=== PATIENT | male | born 1990 | race Caucasian/White ===

== ENCOUNTER 2017-11-23 10:54 | Inpatient (IN) | payer BC, OTHER ==
[~2017-11-23] VITALS: Ht 182.9 cm; Wt 100.2 kg
--- NOTE | 2017-11-23 19:40 | NUR ---
INTAKE ASSESSMENT Intake assessment done by Leila GUTIERREZ and Dimple RN. BP: 137/87, HR:71, RR:16, SpO2:99%, T:98 Pt is in stable condition and able to be admitted on the unit. Unit protocols regrading medications vital signs every four hours were explained. Pt verbalized understanding. Will continue admission upon arrival on the unit.
[2017-11-23 20:26] LABS: *AMPHETAMINE, URINE NEGATIVE (NEGATIVE); *BARBITURATE, URINE NEGATIVE (NEGATIVE); *CANNABINOID, URINE NEGATIVE (NEGATIVE); *COCCAINE, URINE NEGATIVE (NEGATIVE); *OPIATE, URINE NEGATIVE (NEGATIVE); *PHENCYCLIDINE SCREEN,URINE NEGATIVE (NEGATIVE)
--- NOTE | 2017-11-23 21:45 | NUR ---
Admission Admitting 27 year old male to [facility] for medically supervised withdrawal from ETOH (Beer) and Opiates (Heroin). Substance abuse history also includes Cocaine, Marijuana, Methamphetamine, and acid. Pt has medical history of untreated HTN and a frontal brain injury of unknown etiology and did not require treatment Pt was escorted to unit by male INSIDE SALES ACCOUNT REPRESENTATIVE at 1959. He is awake, alert, and oriented. Ambulates independently. Pt cooperative with body and skin check. Skin clean, dry, and intact. Pt appears anxious, flat affect, and withdrawn. Pt denies intoxication and/or withdrawal symptoms at this time. Pt reports the following withdrawal symptoms,"Get anxious, depressed, angry, and have thoughts of suicide when I dont have drugs." Pt is cooperative and forthcoming with substance abuse history. Patient reports his substance abuse history as: 1. ETOH (beer): first use at age 14. Last consumed 2 12 oz beers on 11/22/17. Prior month he consumed approximately 30 beers for the month. Prior 4 years his consumption was 18 12 oz beers daily. 2. Opiates (Heroin): first use was age 19. Last use was I month ago unknown amount.. He would sporadically use approximately 1 gram over the period of a month. His method was always nasal insufflations. 3. Cocaine: first use was age 18. Last consumed 11/15/17 unknown amount. He would use 1 gram periodically over the period of one week for the past 5-6 years. Method was nasal insufflations. 4. Marijuana: first use at age 11. Last consumed 11/02/17 unknown amount. He would use 125mg over a period of a week for 14 years. Method was oral inhalation. 5. Methamphetamine: first use at age 25. Last consumed 11/20/17. He would use 1-1.5 gram daily for the past 7-8 months. Method nasal insufflations, oral inhalation, and PO ingestion. Pt states he used Acid one time 4 months ago. Pt states his substance use has been sporadic. He would use different drugs and quantities on a daily basis. As listed above the quantities were over a period of a day, week, and even a month. Pt was admitted to [facility] in 2014. He left AMA after 15 days and stayed sober for 2 additional days. This is noted to be his longest period of sobriety since age 11. Pt denies history of seizure, delirium, or cardiac complications related to withdrawal. When questioned about SI/SA pt denies at this time. Admits to thoughts of ending things when he runs out of drugs. Denies psychiatric history or 5150. Pt has had numerous consequences related to his substance abuse. He states he has had intentions to not use and would get triggered by multiple sources. I would go to the gas station for one thing and come out with beer, or I would see somebody I used with and then thats all I would think about. And sometimes I would taste the drug and then have to have it. Pt is here now on his own volition. He is motivated to be sober. I had a breakdown and I want to be here. He currently resides with his mother and father and considers them to be his support. His boss is aware of his situation and is allowing the time to seek help. He also has a daughter that he would like to be present in her life. He is currently trying to reconcile the relationship with his daughters mother. He states he has an opportunity for a job in [place] which he believes that after treatment will give him a clean start. Pt states that paternal grandparents are both alcoholics. Vital signs were rendered BP 137/87, HR 71, RR 16, T 98.6, and 99% on room air. Denies complaints of pain, nausea, or any withdrawal symptoms at his time. Lungs clear, bowel sounds active x 4 quadrants. Pt on regular diet, NKA, and a full code. Voiding and last BM 11/23/17 am. Ht 60 and 221 lbs. Pt is a moderate smoker with increased use with drugs and ETOH. Pt educated about plan of care, including detox, group therapy, individual therapy, and discharge. Given literature in regards to smoking cessation, disease processes, and medications that may be used during treatment. Verbalizes understanding. Admission CIWA 8 and COWS 3. notified and orders received. Labs ordered and rendered. Bed low and side rail up x 2. Pt oriented to room, unit, and equipment. Questions answered. Will continue to monitor. Addendum: 11/24/17 at 0719 by SELENE POP LVN Correction: patient is admitted for medically supervised ETOH withdrawal, not opiate withdrawal. Patient's last use of heroin was one month ago, per patient.
[2017-11-23] MEDS ORDERED: BUPRENORPHINE HCL 2 MG TAB.SUBL SL PRN (22:30)
[2017-11-23] MEDS ORDERED: METHOCARBAMOL 750 MG TABLET PO PRN (22:30)
[2017-11-23] MEDS ORDERED: LORAZEPAM 2 MG/1 ML VIAL IM PRN (22:30)
[2017-11-23] MEDS ORDERED: ACETAMINOPHEN 325 MG TABLET PO PRN (22:30)
[2017-11-23] MEDS ORDERED: diphenhydrAMINE 50 MG CAPSULE PO PRN (22:30)
[2017-11-23] MEDS ORDERED: CLONIDINE HCL 0.1 MG TABLET PO PRN (22:30)
[2017-11-23] MEDS ORDERED: MIRALAX 17 GM POWD.PACK PO PRN (22:30)
[2017-11-23] MEDS ORDERED: MAG HYDROX/AL HYDROX/SIMETH 30 ML LIQUID UDC PO PRN (22:30)
[2017-11-23] MEDS ORDERED: THIAMINE HCL 200 MG/2 ML VIAL IM ONE (22:30)
[2017-11-23] MEDS ORDERED: ONDANSETRON 4 MG/2 ML VIAL IM PRN (22:30)
[2017-11-23] MEDS ORDERED: LOPERAMIDE HCL 2 MG CAPSULE PO PRN ×2 (22:30)
[2017-11-23] MEDS ORDERED: HYDROXYZINE PAMOATE 25 MG CAPSULE PO PRN (22:30)
[2017-11-23] MEDS ORDERED: DICYCLOMINE HCL 20 MG TABLET PO PRN (22:30)
[2017-11-23] MEDS ORDERED: IBUPROFEN 400 MG TABLET PO PRN (22:30)
[2017-11-23] MEDS ORDERED: ONDANSETRON ODT 4 MG TAB.RAPDIS SL PRN (22:30)
[2017-11-23] MEDS ORDERED: MAGNESIUM HYDROXIDE 30 ML LIQUID UDC PO PRN (22:30)
[2017-11-23] MEDS ORDERED: LORAZEPAM 1 MG TABLET PO PRN ×2 (22:30)
[2017-11-24] VITALS: BP 121/75
--- NOTE | 2017-11-24 | NUR ---
COWS & CIWA DEFERRED COWS and CIWA deferred at this time, patient is sleeping in bed with eyes closed, respirations even and unlabored; COWS/CIWA to be assessed while patient is awake. Safety measures in place, side rails up x2, bed locked in low position, call light within reach. Will continue to monitor.
[2017-11-24 01:23] LABS: BASOPHILS # (AUTO) 0.1 K/uL (0.0-8.0); BASOPHILS % (AUTO) 0.9 % (0.0-2.0); EOSINOPHILS # (AUTO) 0.2 K/uL (0.0-0.7); EOSINOPHILS % (AUTO) 2.7 % (0.0-7.0); HEMOGLOBIN 16.4 g/dL (12.5-16.3); LYMPHOCYTES # (AUTO) 3.4 K/uL (20.0-40.0); LYMPHOCYTES % (AUTO) 37.3 % (20.5-51.5); MEAN CORPUSCULAR HEMOGLOBIN 30.9 uug (23.8-33.4); MEAN CORPUSCULAR HGB CONC 34 g/dL (32.5-36.3); MEAN CORPUSCULAR VOLUME 90.7 fL (73.0-96.2); MONOCYTES # (AUTO) 0.8 K/uL (2.0-10.0); MONOCYTES % (AUTO) 8.6 % (0.0-11.0); NEUTROPHILS # (AUTO) 4.6 K/uL (1.8-8.9); NEUTROPHILS % (AUTO) 50.5 % (38.5-71.5); PLATELET COUNT (AUTO) 199 K/uL (152-348); RED BLOOD CELL COUNT(AUTO) 5.29 MIL/uL (4.06-5.63); WHITE BLOOD COUNT (AUTO) 9.2 K/uL (3.6-10.2)
[2017-11-24 01:26] LABS: ETHANOL < 3 MG/DL (0-0)
[2017-11-24 01:29] LABS: ALANINE AMINOTRANSFERASE 55 U/L (16-63); ALKALINE PHOSPHATASE 67 U/L (50-136); AMYLASE 85 U/L (25-115); ASPARTATE AMINOTRANSFERASE 28 U/L (15-37); BILIRUBIN,TOTAL 0.3 mg/dL (0.2-1.0); CARBON DIOXIDE 25 mmol/L (21-32); CHLORIDE 109 mmol/L (98-107); CREATININE 0.9 mg/dL (0.6-1.3); GLUCOSE 91 mg/dL (74-106); LIPASE 248 U/L (73-393); MAGNESIUM 1.8 mg/dL (1.8-2.4); POTASSIUM 4.2 mmol/L (3.5-5.1); TOTAL PROTEIN, SERUM 6.7 g/dL (6.4-8.2); UREA NITROGEN, BLOOD 13 mg/dL (7-18)
[2017-11-24 01:36] LABS: THYROID STIMULATING HORMONE 1.307 mIU/mL (0.358-3.740)
--- NOTE | 2017-11-24 04:00 | NUR ---
VITALS REFUSED, COWS & CIWA DEFERRED VITALS refused, COWS and CIWA deferred due to patient sleeping; to be assessed and scored while patient is awake. Respirations even and unlabored, 16/min. Safety measures in place, side rails up x2, bed locked in low position, call light within reach. Will continue to monitor.
--- NOTE | 2017-11-24 07:22 | NUR ---
End of Shift Will endorse 27 year old male admitted 11/23/17 to [facility] for medically supervised withdrawal from ETOH and Opiates. No PRN medications given. Last CIWA 8 and COWS 3 at 1999. PO intake 500ml, voided x 1, BM x 0, and slept 8 hours. Pt in bed resting with eyes closed. Respirations even and unlabored. Continue with fall and seizure precautions with no seizure history. Bed low and side rails up x 2.
--- NOTE | 2017-11-24 07:45 | NUR ---
START OF SHIFT Pt is a 27 yr old male AA&Ox4. Pt is a newly admit from 11/23/17 for ETOH withdrawal and is on PRN's for s/s of w/d. Received report from director of product management nurse. No PRN's were given during the night. Last CIWA score was 8 at 1999. Pt was able to sleep for 8 hrs. Pt is stating, "I feel good this morning". Pt is observed with flat affect. Skin is intact, warm and moist to touch. Pt was encouraged increase fluid intake for hydration. Safety precautions observed. Will continue to monitor.
[2017-11-24 08:00] VITALS: BP 125/84
[2017-11-24] MEDS ORDERED: TUBERCULIN,PURIF.PROT.DERIV. 5 TU/0.1 ML TEST ID ONE (09:00)
--- NOTE | 2017-11-24 09:00 | NUR ---
CIWA ASSESSMENT Pt is c/o anxiety and sweats. CIWA score was 6. Pt is noted with flat affect and hypoactive. Encouraged increase fluid intake. Will continue to monitor.
[2017-11-24] MEDS: FOLIC ACID 1 MG TABLET PO SCH (09:26)
[2017-11-24] MEDS: MULTIVITAMINS,THERAPEUTIC TABLET PO SCH (09:26)
[2017-11-24] MEDS: THIAMINE HCL 100 MG TABLET PO SCH (09:26)
[2017-11-24] MEDS ORDERED: 4 DAY TAPER OF LORAZEPAM -SERENITY PROTOCOL PO PRN (10:45)
[2017-11-24] MEDS: ESCITALOPRAM OXALATE 10 MG TABLET PO SCH (11:10)
[2017-11-24 12:00] VITALS: BP 121/69
--- NOTE | 2017-11-24 12:00 | NUR ---
CIWA ASSESSMENT Pt is observed in bed resting with respirations even and unlabored. Pt is observed with flat affect, avoidant in eye contact and flushed skin. Pt states, "I just feel anxious". CIWA score was 6. Pt is to start on 4 day Ativan taper for s/s of w/d at 1300. Will continue to f/u.
[2017-11-24] MEDS: LORAZEPAM 1 MG TABLET PO SCH ×2 (13:18→17:00)
[2017-11-24 16:00] VITALS: BP 118/69
--- NOTE | 2017-11-24 17:00 | NUR ---
CIWA ASSESSMENT DEFERRED Pt is in bed sleeping with respirations even and unlabored. RR is 16. CIWA assessment deferred at this time. Safety precautions observed. Will continue to monitor.
--- NOTE | 2017-11-24 17:50 | NUR ---
MEDICATION HELD Ativan 2mg PO as scheduled at 1700 was held due to pt is too sedated. RR is 16. Safety measures are observed. Dr. Amin was made aware with new order to change Ativan 2mg PO at 2100 to Ativan 1mg PO at 2100 for today 11/24/17. New order was noted and carried out. Will continue to monitor.
--- NOTE | 2017-11-24 19:10 | NUR ---
END OF SHIFT Pt is a 27 yr old male, AA&Ox4. Pt was admitted on 11/23/17 for ETOH withdrawal and started on 4 day Ativan taper as ordered. Pt has been observed with increase fatigue and has been in bed throughout the day. Ativan 2mg PO as scheduled at 1700 was held due to pt was too sedated. MD was made aware. Pt was observed with flat affect and avoidant in eye contact. No PRNs were given during the day. Last CIWA score was 6 at 1200. Pt remains in bed sleeping with respirations even and unlabored. Safety precautions observed. Endorsed to cook night nurse to continue with care.
--- NOTE | 2017-11-24 19:20 | NUR ---
START OF SHIFT Patient is a 27-year-old male admitted on 11/23/17 for ETOH withdrawal. Patient has started a 4-day Ativan taper today, tolerating well. Per endorsement, patients last CIWA was scored as a 6. Patient received no PRN medications today. Upon assessment, patient is observed sleeping in bed, eyes closed, respirations even and unlabored. Patient is oriented x4, states Im fine and rolls over to go back to sleep. Patient appears older than stated age with flat affect. Patient appears disheveled and unshaven. Patient is on fall and seizure precautions with no history of seizure. Safety measures in place, side rails up x2, bed locked in low position, call light within reach. Will continue to monitor.
[2017-11-24 20:00] VITALS: BP 119/80
--- NOTE | 2017-11-24 20:00 | NUR ---
CIWA DEFERRED CIWA deferred at this time due to patient sleeping; to be assessed while patient is awake. Respirations even and unlabored, 18/min. Patient has been asleep since change of shift. Safety measures in place, side rails up x2, bed locked in low position, call light within reach. Will continue to monitor.
[2017-11-24] MEDS ORDERED: LORAZEPAM 1 MG TABLET PO ONE (21:00)
--- NOTE | 2017-11-24 22:10 | NUR ---
CIWA 6 Patient is awake at this time, oriented x4 and coherent in speech. Patient is anxious and restless, asking, "Can I go down to smoke or is it too late?" Patient has a current CIWA of 6. SN to give scheduled 2100 Ativan at this time. Will continue to monitor.
[2017-11-25] VITALS: BP 112/76
--- NOTE | 2017-11-25 | NUR ---
CIWA DEFERRED CIWA deferred at this time due to patient sleeping, to be assessed and scored while patient is awake. Respirations even and unlabored. Safety measures in place, side rails up x2, bed locked in low position, call light within reach. Will continue to monitor.
[2017-11-25 04:00] VITALS: BP 137/76
--- NOTE | 2017-11-25 04:00 | NUR ---
CIWA DEFERRED CIWA deferred due to patient sleeping; to be assessed and scored while patient is awake. Respirations are even and unlabored. Safety measures in place, side rails up x2, bed locked in low position, call light within reach. Will continue to monitor.
--- NOTE | 2017-11-25 07:06 | NUR ---
END OF SHIFT Patient is a 27-year-old male admitted on 11/23/17 for ETOH withdrawal. Patient started a 4-day Ativan taper yesterday, tolerating well. Patients last CIWA was a 6. Patient received no PRN medications during the shift. Patient slept for 11 hours, total intake of 1,250mL, void x1, stool x0. Patient is on fall and seizure precautions with no history of seizure. Safety measures in place, side rails up x2, bed locked in low position, call light within reach. Will endorse to day shift.
--- NOTE | 2017-11-25 07:35 | NUR ---
START OF SHIFT Pt is a 27 yr old male AA&Ox4. Pt was admitted on 11/23/17 for ETOH withdrawal and is on 4 day Ativan taper as ordered. Received report from tin flopper nurse. No PRN's were given during the night. Last CIWA score was 6 at 2210. Pt was able to sleep for 11 hrs. Pt is in bed resting with respirations even and unlabored. During assessment, Pt denies any sweats, chills, nausea, visual or auditory hallucinations. Pt states,"I am not withdrawing". Clarified history use of Alcohol with pt. Pt states in the past month he was drinking less due to increase use of meth. Pt states, "I would start drinking and then when I used meth, I would just stop drinking and continue using meth". Pt states, "I probably drank 10 beers in a week for the past month". Pt is noted agitated with flat affect due to clarification questions. Pt states, "you guys keep asking me that!" Pt was educated on the importance of maintaining an accurate use history. Pt was able to verbalize understanding. Safety precautions observed. Will continue to monitor.
[2017-11-25] MEDS: LORAZEPAM 1 MG TABLET PO SCH ×2 (09:00→13:00)
[2017-11-25 09:06] VITALS: BP 132/81
[2017-11-25] MEDS: MULTIVITAMINS,THERAPEUTIC TABLET PO SCH (09:18)
[2017-11-25] MEDS: FOLIC ACID 1 MG TABLET PO SCH (09:18)
[2017-11-25] MEDS: THIAMINE HCL 100 MG TABLET PO SCH (09:18)
[2017-11-25] MEDS: ESCITALOPRAM OXALATE 10 MG TABLET PO SCH (09:18)
--- NOTE | 2017-11-25 09:18 | NUR ---
MEDICATION REFUSED Pt refused to take Ativan 1mg PO as scheduled at 0900. Pt states, "I don't need that". CIWA score was 4 for agitation and anxiety. Will continue to monitor.
[2017-11-25 12:00] VITALS: BP 129/79
[2017-11-25 13:06] LABS: HEPATITIS B SURFACE AG Negative (Negative)
--- NOTE | 2017-11-25 13:22 | NUR ---
MEDICATION HELD Ativan 1mg PO as scheduled at 1300 was held per .
--- NOTE | 2017-11-25 14:26 | NUR ---
Therapist prompted client to attend all group therapy sessions.
[2017-11-25 16:00] VITALS: BP 131/75
--- NOTE | 2017-11-25 19:17 | NUR ---
END OF SHIFT Pt is a 27 yr old male, AA&Ox4. Pt was admitted on 11/23/17 for ETOH withdrawal. Pt was on 4 day Ativan taper but was discontinued per MD. Pt has been observed with increase fatigue and remained in his room throughout the day. Pt is observed with flat affect and avoidant in eye contact. No PRNs were given during the day. Last CIWA score was 4 at 1600. Pt is to be discharged tomorrow to [facility]. Pt states he is ready to continue with care. Safety precautions observed. Call light is within reach. Endorsed to hotel night auditor nurse to continue with care.
--- NOTE | 2017-11-25 19:30 | NUR ---
START OF SHIFT Pt is a 27 y/o male admitted on 11/23/17 for ETOH withdrawal. Pt was on a 4 day Ativan taper but was discontinue per MD. Pt is set to be discharged tomorrow to [facility]. Last CIWA 4 and no PRNs administered during day shift. Upon assessment Pt presented with anxiety, agitation, flat affect, withdrawn, isolative, and poor eye contact. Medications due. Safety measures in place. Call light within reach. Will continue to monitor.
[2017-11-25 20:00] VITALS: BP 125/69
--- NOTE | 2017-11-25 20:00 | NUR ---
CIWA 3 Pt found in bed watching TV. Pt complains of mild anxiety and agitation. Safety measures in place. Call light within reach. Will continue to monitor.
[2017-11-26] VITALS: BP 134/69
--- NOTE | 2017-11-26 | NUR ---
CIWA 3 Pt found in bed with eyes closed. Pt complains of mild anxiety and agitation. Safety measures in place. Call light within reach. Will continue to monitor.
--- NOTE | 2017-11-26 04:00 | NUR ---
CIWA DEFERRED AND VITAL SIGNS REFUSED Patient is noted in bed with eyes closed. Breathing even and non labored. CIWA and vital signs not able to be completed per order. Safety measures in place. Call light within reach. Will continue to monitor.
--- NOTE | 2017-11-26 07:14 | NUR ---
END OF SHIFT Pt is a 27 y/o male admitted on 11/23/17 for ETOH withdrawal. Pt was on a 4 day Ativan taper but was discontinue per MD. Pt is set to be discharged today to [facility]. Pt presented with anxiety, agitation, flat affect, withdrawn, isolative, and poor eye contact. No PRN medication administered during deli department manager. Last CIWA 3. Pt slept 9 hours. Intake 1,250 ml, void x 3, stool x 1. Safety measures in place. Call light within reach. Pt's need have been met. Endorse to day shift nurse.
[2017-11-26 08:00] VITALS: BP 132/84
--- NOTE | 2017-11-26 08:00 | NUR ---
START OF SHIFT Pt is a 27 yr old male AA&Ox4. Pt was admitted on 11/23/17 for ETOH withdrawal and is on PRN's for s/s of w/d. Received report from assistant casino shift manager nurse. No PRN's were given during the night. Last CIWA score was 3 at 0000. Pt was able to sleep for 9 hrs. Pt is currently in bed resting with respirations even and unlabored. Pt is c/o anxiety but is able to cope with anxiety level. Pt is observed with flat affect and avoidant in eye contact. Pt is pending on discharged for today. Safety precautions observed. CIWA score this morning is 3. Will continue to monitor.
[2017-11-26] MEDS ORDERED: LORAZEPAM 1 MG TABLET PO SCH (09:00)
[2017-11-26] MEDS: MULTIVITAMINS,THERAPEUTIC TABLET PO SCH (09:03)
[2017-11-26] MEDS: FOLIC ACID 1 MG TABLET PO SCH (09:03)
[2017-11-26] MEDS: THIAMINE HCL 100 MG TABLET PO SCH (09:03)
[2017-11-26] MEDS: ESCITALOPRAM OXALATE 10 MG TABLET PO SCH (09:03)
[2017-11-26 12:00] VITALS: BP 125/72
--- NOTE | 2017-11-26 12:14 | NUR ---
CIWA Assessment: CIWA 3, patient is noted with complains of anxiety but states it is tolerable at this time. He was able to participate in group and activities. With pending discharge this afternoon. Oral fluids encouraged. Support provided.
--- NOTE | 2017-11-26 15:15 | NUR ---
Discharge Pt is in stable condition. Vitals WNL. Pt is A&Ox4, skin intact. Pt denies any SI/HI. All discharge paperwork completed, dated, and signed. Pt educated about discharge instructions, what to do after discharge when to contact MD as well as the s/s reportable to MD. Pt verbalized understanding. Pt was provided with all of his discharge paperwork. His last CIWA was 3. Pt was discharged from [facility] on 11/26/17 at 1511. He left the building with all of his belongings, prescriptions, and medications. MD and Psychiatrist aware.
[2017-11-27] MEDS ORDERED: LORAZEPAM 1 MG TABLET PO SCH (09:00)
== END 2017-11-26 15:11 | disposition other institution (70) | DRG 895 ==
LOC: SRC 19:18
PROVIDERS: ADMIT Internal Medicine; ATTEND Internal Medicine
PROC: HZ2ZZZZ Detoxification Services for Substance Abuse Treatment (ICD-10-PCS; principal; 2017-11-23)
PROC: HZ31ZZZ Individual Counseling for Substance Abuse Treatment, Behavioral (ICD-10-PCS; 2017-11-26)
DX: F15.23 Other stimulant dependence with withdrawal (principal); F33.1 Major depressive disorder, recurrent, moderate; F10.230 Alcohol dependence with withdrawal, uncomplicated; F14.10 Cocaine abuse, uncomplicated; Y90.0 Blood alcohol level of less than 20 mg/100 ml; F17.210 Nicotine dependence, cigarettes, uncomplicated; F41.1 Generalized anxiety disorder; Z81.1 Family history of alcohol abuse and dependence; Z87.820 Personal history of traumatic brain injury; I10 Essential (primary) hypertension
CPT/HCPCS: 36415; 80307; 83690; 83735; 84443; 85025; 86580; 86592; 86705; 86803; 87340; 87806; A4663; G0480